=== PATIENT | female | born 1980 | race African-American/Black ===

== ENCOUNTER 2016-12-28 04:38 | Inpatient (IN) | payer OTHER ==
--- NOTE | 2016-12-27 18:26 | History & Physical Pre-Op ---
General Information and HPI History of Present Illness: The patient is a 36-year-old female lmp 2 weeks ago with known fibroid uterus who presents to the hospital for planned open myomectomy secondary to pelvic pain. Allergies/Medications Allergies: Coded Allergies: NO KNOWN ALLERGIES (01/10/12) Past History Medical History Tetanus Vaccine: 01/14/12 Surgical History Pertinent Surgical History: cholecystectomy, Review of Systems Review of Systems Constitutional: Reports: no symptoms. EENTM: Reports: no symptoms. Cardiovascular: Reports: no symptoms. Respiratory: Reports: no symptoms. GI: Reports: no symptoms. Genitourinary: Reports: see HPI. Musculoskeletal: Reports: no symptoms. Skin: Reports: no symptoms. Neurological/Psychological: Reports: no symptoms. Hematologic/Endocrine: Reports: no symptoms. Immunologic/Allergic: Reports: no symptoms. All Other Systems: Reviewed and Negative Exam & Diagnostic Data Last 24 Hrs of Vital Signs/I&O vss Physical Exam: HEENT: Normocephalic atraumatic Chest: Clear to auscultation bilaterally. Cardiovascular: Normal S1, S2 Abdomen: Soft nontender nondistended Pelvic: Deferred to the OR Extremities: No clubbing, cyanosis, or edema Neurologic: Nonfocal Assessment/Plan Assessment/Plan: Fibroid uterus pelvic pain Plan myomectomy As Ranked By This Provider Problem List: 1. Leiomyoma of uterus
[~2016-12-28] VITALS: Ht 167.6 cm; Wt 93.9 kg
[2016-12-28 09:26] LABS: ABSOLUTE BASOPHIL COUNT 0 /CUMM (0.0-0.2); ABSOLUTE EOSINOPHIL COUNT 0.1 /CUMM (0.0-0.7); ABSOLUTE GRANULOCYTE CT 2.6 /CUMM (1.4-6.5); ABSOLUTE LYMPH COUNT 2.9 /CUMM (1.2-3.4); ABSOLUTE MONOCYTE COUNT 0.6 /CUMM (0.10-0.60); BASOPHIL % 0.4 % (0.0-2.0); EOSINOPHIL % 2.1 % (0-5); GRANULOCYTE % 41.2 % (42.2-75.2); HEMATOCRIT 29.6 % (37-47); MEAN CORPUSCULAR HGB 32.1 PG (27.0-31.0); MEAN CORPUSCULAR HGB CONC 33.5 G/DL (33.0-37.0); MEAN CORPUSCULAR VOLUME 95.7 FL (81.0-99.0); MEAN PLATELET VOLUME 8.4 FL (7.4-10.4); PLATELET COUNT 229 /CUMM (130-400); RBC DISTRIBUTION WIDTH 13.2 % (11.5-14.5); RED BLOOD CELL CT 3.09 /CUMM (4.20-5.40); WHITE BLOOD CELL COUNT 6.3 /CUMM (4.8-10.8)
--- NOTE | 2016-12-28 11:40 | Operative Report ---
Operative/Inv Procedure Report Surgery Date: 12/28/16 Name of Procedure: Multiple myomectomies Pre-Operative Diagnosis: I reviewed uterus chronic pelvic pain Post-Operative Diagnosis: Multiple fibroids Estimated Blood Loss: 50ml to 100ml Surgeon/Child Care Worker: FLORES CANNON MD,JAYLIN Jain M.D. Anesthesia: general endotracheal tube Operative/Procedure Note Note: The patient was brought to the operating room placed on the OR table in the dorsal supine position. She was given adequate anesthesia and successfully intubated. Venodyne boots were placed and activated prior to induction of anesthesia. A Van catheter was placed and drained clear yellow urine. Block Was Placed by Anesthesia Successfully. The Patient's Abdomen Was Prepped and Draped in Usual Sterile Fashion. A Pfannenstiel Skin Incision Was Made with Taken down to the Layer of the Fascia. The Fascia Was Nicked in the Midline and Extended Bilaterally. The Peritoneum Was Entered Bluntly after the Rectus Muscles. An O'Roddy-O'Tsang Retractor Was Placed into the Abdomen and the Intestines Were Packed Away Using Moist Laparotomy Pads. The Uterus Was Approximately 16-18 Weeks in Size Multiple Fibroids throughout. Ovaries Appeared Normal. This Double-Tooth Tenaculum Was Attached to the Fundus and It Was Elevated throughout the Case. Pitressin Was Injected over the Incision Site on the Uterus Which Was Transverse. The the Uterus Was Then Incised over the Largest Fibroid and This Was Shelled out Using Blunt and Sharp Dissection. A 4 Cm Fibroid Was Removed and Sent to Pathology. There Were 2 Anterior Fibroids Which Was Removed with the Electrocautery and Sent to Pathology As Well. The Uterus Was Noted to Be Several Other Fibroids Pitressin Was Injected in the Midline and Incision Was Made with the Scalpel. Multiple Myomectomies Were Performed through This Incision through Blunt and Sharp and Electric Dissection. There Was 1 Large Fibroid on the Left Cornual Region and Every Effort Was Made to Avoid the Left Fallopian Tube and Left Uterine Artery. This Was Shelled out and the Bed Was Coagulated. At the End of the Procedure the Redundant Fibroids Noted and These Were Sent to Pathology. The Bases of the Defect Were Closed Using an Running Locking Stitch of 0 Polysorb. The Serosa and Upper Wall of the uterus was then closed with a running locking stitch. Hemostasis was good. The the laparotomy pads and the retractor was removed and Ck coagulation pattern was placed on the surgical area. The rectus muscles were reapproximated using 0 Polysorb and 2 interrupted sutures. The fascia was closed using 1 Polysorb in a running nonlocking fashion. Subcutaneous tissues were irrigated and coagulated were needed. The skin was closed using anita. A dry sterile dressing was applied to the wound. The patient was awakened and sent to recovery in good condition. All needle, sponge, and instrument counts were correct at the end of the procedure 2.
[2016-12-28 19:07] LABS: ABSOLUTE BASOPHIL COUNT 0 /CUMM (0.0-0.2); ABSOLUTE EOSINOPHIL COUNT 0 /CUMM (0.0-0.7); ABSOLUTE LYMPH COUNT 0.9 /CUMM (1.2-3.4); ABSOLUTE MONOCYTE COUNT 0.2 /CUMM (0.10-0.60); BASOPHIL % 0.1 % (0.0-2.0); EOSINOPHIL % 0 % (0-5); HEMATOCRIT 32.2 % (37-47); MEAN CORPUSCULAR HGB CONC 33.3 G/DL (33.0-37.0); PLATELET COUNT 260 /CUMM (130-400)
[2016-12-28 19:19] LABS: ABSOLUTE GRANULOCYTE CT 13.1 /CUMM (1.4-6.5); MEAN CORPUSCULAR VOLUME 96.2 FL (81.0-99.0); MEAN PLATELET VOLUME 8.8 FL (7.4-10.4); RBC DISTRIBUTION WIDTH 13.7 % (11.5-14.5); RED BLOOD CELL CT 3.35 /CUMM (4.20-5.40)
[2016-12-28 19:20] LABS: WHITE BLOOD CELL COUNT 14.2 /CUMM (4.8-10.8)
[2016-12-28 19:28] LABS: GRANULOCYTE % 92.3 % (42.2-75.2)
[2016-12-29 08:05] LABS: ABSOLUTE BASOPHIL COUNT 0 /CUMM (0.0-0.2); ABSOLUTE EOSINOPHIL COUNT 0 /CUMM (0.0-0.7); ABSOLUTE GRANULOCYTE CT 11.8 /CUMM (1.4-6.5); ABSOLUTE LYMPH COUNT 2.2 /CUMM (1.2-3.4); ABSOLUTE MONOCYTE COUNT 1.1 /CUMM (0.10-0.60); BASOPHIL % 0.2 % (0.0-2.0); EOSINOPHIL % 0 % (0-5); GRANULOCYTE % 77.8 % (42.2-75.2); HEMATOCRIT 28.7 % (37-47); MEAN CORPUSCULAR HGB 32.4 PG (27.0-31.0); MEAN CORPUSCULAR HGB CONC 33.7 G/DL (33.0-37.0); MEAN CORPUSCULAR VOLUME 96.2 FL (81.0-99.0); MEAN PLATELET VOLUME 9.1 FL (7.4-10.4); PLATELET COUNT 219 /CUMM (130-400); RBC DISTRIBUTION WIDTH 13.8 % (11.5-14.5); RED BLOOD CELL CT 2.98 /CUMM (4.20-5.40); WHITE BLOOD CELL COUNT 15.1 /CUMM (4.8-10.8)
--- NOTE | 2016-12-29 14:03 | RADIOLOGY REPORT ---
EXAMINATION: XR HIP, RIGHT CLINICAL INFORMATION: Patient fell onto right hip this morning. Evaluate for fracture. COMPARISON: None TECHNIQUE: Two views of the right hip. FINDINGS: Bones and soft tissues are normal. No fracture. Alignment is anatomic. Hip joint space is maintained. Renetta are seen projected over the mid pelvis. IMPRESSION: Normal right hip.
[2016-12-29] MEDS ORDERED: PERCOCET 5-3251 EACH PO (18:40)
[2016-12-29] MEDS ORDERED: IBUPROFEN800 M1 PO (18:40)
--- NOTE | 2016-12-30 13:03 | Surgical Discharge Summary ---
Visit Information Visit Dates Admission Date: 12/28/16 Discharge Date: 12/30/2016 History of Present Illness Chief Complaint: FIBROID UTERUS Medical History Tetanus Vaccine: 01/14/12 Surgical History Pertinent Surgical History: cholecystectomy, Psychosocial History What is Your Primary Language? German Review of Systems: NEG Hospital Course Course Attending Physician: JAYLIN OSEGUERA MD Primary Care Physician: PATIENT HAS NO PRIMARY CARE DR Hospital Course: UNDERWENT MULTIPLE MYOMECTOMIES. POD1 AFEBRILE VSS. DIET ADVANCED, ACTIVITY INCREASED. POD2 PT DISCHARGED Allergies: Coded Allergies: NO KNOWN ALLERGIES (01/10/12) Disposition Summary Disposition Principal Diagnosis: FIBRIOD UTERUS Additional Diagnosis: PELVIC PAIN Discharge Disposition: home or self care Discharge Instructions General Discharge Information Code Status: Full Code Patient's Diet: REG Patient's Activity: PELVIC REST Follow-Up Instructions/Appts: MONDAY Medications at Discharge Discharge Medications: Start taking the following new medications: Ibuprofen (Ibuprofen) 800 MG TABLET 800 Milligram ORAL EVERY SIX HOURS NEEDED as needed for ABDOMINAL PAIN Qty = 36 No Refills Comments: Last Taken: Time: 12/30/16 at 10 am Oxycodone HCl/Acetaminophen (Percocet 5-325 MG Tablet) 5 MG-325 MG TABLET 1-2 Tablet ORAL EVERY 4 HOURS NEEDED as needed for PAIN SCALE 7-10 ( SEVERE) Qty = 36 No Refills Comments: Last Taken: Time: 12/27/16 at 10 am
== END 2016-12-30 13:30 | DRG 519 ==
LOC: STS 04:38 → GNO 10:36 → PACUH 10:36 → ENRESERV 12:48 → ENTRNSPT 13:14 → EDTRNSPTSTS 13:17 → EDTRNSPT 13:17 → CMPTRNSPT 13:29 → GNO 13:56
PROVIDERS: ADMIT Obstetrics & Gynecology
PROC: 0UB90ZZ Excision of Uterus, Open Approach (ICD-10-PCS; principal; 2016-12-28)
DX: D25.9 Leiomyoma of uterus, unspecified (principal); R10.2 Pelvic and perineal pain
CPT/HCPCS: GNOS; 73502-RT; 81025; 87086; J0131; J0690; J1170; J1885; J2405